=== PATIENT | male | born 1955 | race American Indian/Alaskan Native ===

== ENCOUNTER 2023-11-11 11:04 | Day surgery (SDC) | payer OTHER ==
[2023-11-11] VITALS (13 sets, daily range): BP systolic 138–173; BP diastolic 65–83
[~2023-11-11] VITALS: Ht 172.7 cm; Wt 109.0 kg
[~2023-11-11 11:04] MED LIST: ALBU90OI INH; ARTIFICIAL TEA1 EAC1 BOTHEYES; ASCO500 PO; ASPI325 PO; ATOR20 PO; BUME1; BUME1 PO; CETI5; CIPR500 PO; FERSU300 PO; FINA5 PO; FURO80 PO; Flonase 0.05% N16 GM; HYDACE5 PO; HYDHCL25; IBUP800 PO; LEVFLO500 PO; LISI20 PO; METHI10 PO; MOME220I; POTA10T PO; POTCHL10ER PO; SERT100; SERT100 PO; SERT50 PO; SLEEPING PILL; TERA5; TERA5 PO; THERA-D2000 UNIT PO; TRAZ50; TRAZ50 PO; Zoloft100 MG PO
[2023-11-11] MEDS ORDERED: CeFAZolin Sodium 2,000 MG in NS 50 ML IV SCH (12:55)
[2023-11-11] MEDS ORDERED: Lactated Ringer's 1,000 ML IV SCH (12:55)
[2023-11-11 13:41] LABS: BASOPHILS ABSOLUTE AUTO 0.07 K/mm3 (0.00-0.23); BASOPHILS PERCENT AUTO 1 % (0-2); EOSINOPHILS ABSOLUTE AUTO 0.16 K/mm3 (0.00-0.68); EOSINOPHILS PERCENT AUTO 3 % (0-6); Hematocrit 40.2 % (37.0-53.0); IMMATURE GRAN ABSOLUTE AUTO 0.01 K/mm3 (0.00-0.10); IMMATURE GRAN PERCENT AUTO 0 % (0-1); LYMPHOCYTES PERCENT AUTO 27 % (21-46); MONOCYTES ABSOLUTE AUTO 0.76 K/mm3 (0.16-1.47); MONOCYTES PERCENT AUTO 14 % (4-13); Mean Corpuscular HGB 30.1 pg (26.0-34.0); Mean Corpuscular HGB Conc 34.8 g/dL (31.5-36.5); Mean Corpuscular Volume 87 fL (80-100); Mean Platelet Volume 9.1 fL (9.1-12.4); NEUTROPHILS ABSOLUTE AUTO 3.12 K/mm3 (1.96-9.15); NEUTROPHILS PERCENT AUTO 56 % (41-73); Platelet Count 133 K/mm3 (150-400); RDW Coefficient Variation 13.9 % (11.7-14.2); RDW Standard Deviation 44.1 fL (35.1-46.3); Red Blood Cell Count 4.65 M/mm3 (4.30-5.90); White Blood Cell Count 5.62 K/mm3 (4.00-11.30)
[2023-11-11] MEDS ORDERED: Bupivacaine 0.5% HCl 5 MG/ML 30MLVIAL ONE (13:48)
[2023-11-11 13:52] LABS: Bun/Creatinine Ratio 29.9 (12.0-20.0); Calcium, Blood 9.2 mg/dL (8.5-10.1); Creatinine, Blood 0.6 mg/dL (0.60-1.20); Potassium, Blood 3.8 mmol/L (3.5-5.5)
[2023-11-11] MEDS ORDERED: propofoL 20 ML IV ONE (13:53)
[2023-11-11] MEDS ORDERED: FentaNYL Citrate 50 MCG/ML 2 ML Injection ONE ×2 (13:53→16:16)
[2023-11-11] MEDS ORDERED: Dexamethasone Sod Phos 10 MG/ML 1ML VIAL ONE (13:54)
[2023-11-11] MEDS ORDERED: Ketorolac Tromethamine 30mg Vial ONE (13:54)
[2023-11-11] MEDS ORDERED: Ondansetron HCl 2 MG / ML 2ML Vial ONE (13:54)
--- NOTE | 2023-11-11 13:58 | NUR ---
Ambulatory in Day Surgery WITH . History, Chart, Medications and Allergies reviewed before start of procedure.Lungs clear T/O to Auscultation. Patient confirms NPO status and agrees with scheduled surgery. Pre-Op teaching done. Pt verbalizes understanding. Patient States Post-Procedure ride home has been arranged.
[2023-11-11] MEDS ORDERED: Bupivacaine HCl 2.5 MG/ML 10ML P/F Injection ONE (14:27)
[2023-11-11] MEDS ORDERED: HYDROmorphone HCl/Pf 1MG SYR ONE (14:56)
[2023-11-11] MEDS ORDERED: OxyCODONE HCL 5 MG TAB PO PRN (16:15)
--- NOTE | 2023-11-11 17:10 | NUR ---
1710 Patient up to Ambulate independently. Gait steady. Discharge instructions reviewed with patient. Patient verbalizes understanding. Copy given to patient to take home. Discharged via wheelchair to private car for ride home. Dressing to procedure site clean, dry, intact with no visible drainage, swelling, erythema or bruising noted.
== END 2023-11-11 17:15 | disposition home or self-care (01) ==
LOC: ORSCMMR 11:04
PROVIDERS: Orthopaedic Surgery Sports Medicine
PROC: 0PSH04Z Reposition Right Radius with Internal Fixation Device, Open Approach (ICD-10-PCS; principal; 2023-11-11 14:00)
DX: S52.571A Other intraarticular fracture of lower end of right radius, initial encounter for closed fracture (principal); S52.611A Displaced fracture of right ulna styloid process, initial encounter for closed fracture; W01.198A Fall on same level from slipping, tripping and stumbling with subsequent striking against other object, initial encounter; I10 Essential (primary) hypertension; J44.9 Chronic obstructive pulmonary disease, unspecified; G47.33 Obstructive sleep apnea (adult) (pediatric); E05.00 Thyrotoxicosis with diffuse goiter without thyrotoxic crisis or storm; F43.10 Post-traumatic stress disorder, unspecified; I50.9 Heart failure, unspecified; Z79.899 Other long term (current) drug therapy; Z68.36 Body mass index [BMI] 36.0-36.9, adult
CPT/HCPCS: 80048; 85025; 93005; 93010; C1713; J0690; J1100; J1170; J1885; J2405; J2704; J3010; J7120